=== PATIENT | female | born 1965 | race Caucasian/White ===

== ENCOUNTER → 2024-03-18 07:03 | Outpatient (REF) | payer OTHER, SELFPAY | LOC: RSP 07:03 | PROVIDERS: ATTENDING PHYSICIAN Registered Nurse; FAMILY PHYSICIAN Internal Medicine Rheumatology | DX: F17.200 Nicotine dependence, unspecified, uncomplicated (principal) | CPT/HCPCS: 94727; 94729; 88738; 94010 ==